=== PATIENT | female | born 1985 | race Caucasian/White ===

== ENCOUNTER 2022-10-11 20:54 | Emergency (ER) | payer MEDICARE ==
[~2022-10-11] VITALS: Ht 167.6 cm; Wt 93.0 kg
[2022-10-11] MEDS ORDERED: PREDNISONE20 MG PO (21:32)
[2022-10-11] MEDS ORDERED: LABETALOL HCL200 MG PO (21:33)
[2022-10-11] MEDS ORDERED: CYMBALTA30 MG PO (21:33)
== END 2022-10-11 23:11 | disposition home or self-care (01) ==
LOC: ED 20:54
DX: S93.402A Sprain of unspecified ligament of left ankle, initial encounter (principal); X50.1XXA Overexertion from prolonged static or awkward postures, initial encounter; Z79.899 Other long term (current) drug therapy; Z79.52 Long term (current) use of systemic steroids
CPT/HCPCS: 73610; 99283-25; A9270